=== PATIENT | female | born 1985 | race Asian ===

== ENCOUNTER 2023-04-29 20:50 | Emergency (ER) | payer MEDICAID, SELFPAY ==
--- NOTE | ~2023-04-29 | XR_ITS ---
EXAMINATION: XR HAND, LEFT CLINICAL INFORMATION: Evaluate fifth digit fracture. COMPARISON: None available. TECHNIQUE: PA, lateral, and oblique views of the left hand. FINDINGS: Obliquely oriented minimally displaced fracture of the proximal aspect of the middle phalanx of the fifth digit with intra-articular extension into the PIP joint. No additional fractures. Mild surrounding soft tissue swelling. No unexpected radiopaque foreign bodies. XR/XR hand LT 2V IMPRESSION: Fracture of the middle phalanx of the fifth digit with intra-articular extension as above.
[2023-04-29 21:00] VITALS: BP 149/102; BP 160/90; PULSE 110; PULSE 114; RESP 18; TEMP 37.1; O2SAT 100; O2SAT 97; BMI 40.3
--- NOTE | 2023-04-29 21:09 | ECG_ITS ---
Test Reason : OVERDOSE Blood Pressure : / mmHG Vent. Rate : 110 BPM Atrial Rate : 110 BPM P-R Int : 172 ms QRS Dur : 078 ms QT Int : 328 ms P-R-T Axes : 024 038 059 degrees QTc Int : 443 ms Sinus tachycardia Otherwise normal ECG No previous ECGs available Referred By: Brittanie Waldron Electronically Signed By:ELVIRA MC
--- NOTE | 2023-04-29 21:11 | ED.GENADULT ---
HPI - General Adult General Chief complaint: Overdose Stated complaint: accidently overdose Time Seen by Provider: 04/29/23 20:59 Source: patient Mode of arrival: EMS Limitations: no limitations History of Present Illness HPI narrative: Patient comes to the Emergency room by ambulance from a [facility] facility. Earlier today, patient accidentally took too much Ambien. Patient states that earlier in the morning, patient was trying to sleep, took 2 tablets of Ambien, then in the evening patient tried to sleep and took 2 more tablets of a min, total of 4 today. Facility staff noted that the patient was sleepy, wobbly on her feet, EMS was called. Patient states that she was just trying to sleep. Patient denies SI or HI. Related Data Allergies Allergy/AdvReac Type Severity Reaction Status Date / Time Penicillins Allergy Severe Anaphylaxis Verified 04/29/23 21:09 Review of Systems Review of Systems: Constitutional : No Weight loss, No Fever, No Chills, No Night Sweats, No Fatigue, No Malaise complaining of feeling somnolent ENT/Mouth : No Hearing loss, No Ear Pain, No Nasal Congestion, No Sinus Pain, No Hoarseness, No sore throat, No Rhinorrhea, No Swallowing Difficulty Eyes: No Eye Pain, No Swelling, No Redness, No Foreign Body, No Discharge, No Vision Changes Cardiovascular : No Chest Pain, No SOB, No Dyspnea on Exertion, No Orthopnea, No Edema, No Palpitations Respiratory : No Cough, No Sputum, No Wheezing, No Smoke Exposure, No Dyspnea Gastrointestinal : No Nausea, No Vomiting, No Diarrhea, No Constipation, No abdominal Pain, No Hematochezia, No Melena Genitourinary : no irregular bleeding, No Dysuria, No Urinary Frequency, No Hematuria, No Urinary Incontinence, No Urgency, No Flank Pain, No Urinary Flow Changes, No Hesitancy Musculoskeletal : No joint pain, No Myalgias, No Joint Swelling Skin : No Skin Lesions, No rash Neuro : No Weakness, No Numbness, No Paresthesias, No Loss of Consciousness, No Dizziness, No Headache Psych : No Anxiety/Panic, No Depression, No SI/HI/AH/VH, No Social Issues, Heme/Lymph: No Bruising, No Bleeding,No Lymphadenopathy Endocrine : No Polyuria, No Polydipsia, No Temperature Intolerance PMFSH Social History Social History Advance Directives: No Advance Directives Information Provided: No Physical Exam ED Vital Signs: Vital Signs - 24 hr 04/29/23 21:00 Temperature 98.7 F Pulse Rate 114 H Respiratory Rate 18 Blood Pressure 149/102 H Pulse Oximetry 97 Oxygen Delivery Method Room Air BMI result Body Mass Index 40.3 Const Other: Appearance: Alert. Oriented X3. No acute distress. Eyes: Pupils equal, round and reactive to light. ENT: Pharynx normal. Neck: Normal inspection. Neck supple. No lymph nodes noted. No crepitus CVS: Normal heart rate and rhythm. Pulses normal. Normal S1 and S2 Respiratory: No respiratory distress. Breath sounds normal. No Wheezing. No rales Abdomen: Soft and nontender. No rigidity. No distention. Skin: Skin warm and dry. Normal skin color. Normal skin turgor. Extremities: No lower extremity edema. No Lacerations. No Rash Neuro: Oriented X 3. No motor deficit. No sensory deficit. Moving all extremities. No slurred speech. CN 2 through 12 grossly intact Psych: calm, cooperative, normal affect Course Course Course Narrative: -all of patient's labs and imaging pending -EKG pending Medical Decision Making Medical Decision Making MDM Narrative: -at 22:14, I was informed that the patient eloped -also, the nurse informed me that the patient left with her IV in her arm. Security is looking for the patient, also police department has been called Lab Data 04/29/23 21:26 04/29/23 21:26 Labs: Lab Results 04/29/23 Range/Units 21:26 WBC 8.8 (4.8-10.8) X10*3/uL RBC 4.79 (4.20-5.50) X10*6/uL Hgb 13.7 (12.0-16.0) g/dl Hct 39.5 (37.0-47.0) % MCV 82.5 (80.0-98.0) fL MCH 28.6 (27.0-33.0) pg MCHC 34.7 (31.0-35.0) g/dl RDW 13.1 (11.0-16.0) % Plt Count 364 (160-400) X10*3/uL MPV 8.9 L (9.4-12.3) fL Immature Gran % (Auto) 0.6 H (0.0-0.4) % Neut % (Auto) 60.5 (45-73) % Lymph % (Auto) 28.3 (20-40) % Burnet % (Auto) 8.0 (2-11) % Eos % (Auto) 2.0 (0-4) % Baso % (Auto) 0.6 (0-2) % Lymph # (Auto) 2.5 (1.2-4.9) X10*3/uL Burnet # (Auto) 0.7 (0.1-1.2) X10*3/uL Eos # (Auto) 0.2 (0.0-0.4) X10*3/uL Baso # (Auto) 0.1 (0.0-0.2) X10*3/uL Abs Immat Gran (auto) 0.05 H (0.00-0.03) X10*3/uL Absolute Neuts (auto) 5.3 (2.0-8.3) x10*3/uL Absolute Nucleated RBC 0.000 (0.0-0.012) X10*3/uL Nucleated RBC % (auto) 0.0 (0.0-0.2) /100WBC PT 11.5 (11.1-13.3) SEC INR 0.9 (0.9-1.1) Sodium 138 (135-145) mmol/L Potassium 3.6 (3.3-5.1) mmol/L Chloride 105 (96-108) mmol/L Carbon Dioxide 25 (22-29) mmol/L Anion Gap 12 (12-20) BUN 17 H (9-16) mg/dL Creatinine 1.34 (0.5-1.4) mg/dL Estim Creat Clear Calc 66.6 Estimated GFR 45 Random Glucose 106 (60-115) mg/dL Calcium 9.3 (8.4-10.2) mg/dL Magnesium 2.2 (1.6-2.6) mg/dL Total Bilirubin 0.2 (0.0-1.0) mg/dL Direct Bilirubin < 0.2 (0.0-0.5) mg/dL AST 25 (5-31) U/L ALT 50 H (0-31) U/L Alkaline Phosphatase 110 (39-117) U/L Total Protein 8.4 H (6.5-8.0) g/dL Albumin 4.1 (3.5-5.0) g/dL Ethyl Alcohol < 10 mg/dL Discharge Plan Discharge Clinical Impression: Accidental medication overdose Patient Disposition: Left W/O Completing Treatment
--- NOTE | 2023-04-29 21:20 | PC.NURSE ---
Patient BIB [facility] for evaluation s/p accidentally taking too many Ambien tablets. Patient states that earlier in the morning she was trying to sleep, took 2 tablets of Ambien, later in evening patient took 2 more tabs of Ambien d/t difficult time staying asleep, total number of Ambien taken today is 4 tabs. [facility] staff noted that the patient was sleepy, wobbly on her feet, EMS was called. Patient reports she was just trying to sleep. Patient denies SI/HI. Patient is alt and oriented x4. Ambulated to a restroom with a steady gait. IV line established in L AC, labs drawn and sent to lab for processing, EKG completed by echocardiography radiology technologist. Patient requested and provided with kerry justino and chicken sandwich.
--- NOTE | 2023-04-29 21:21 | MHC.EDTECH ---
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 EKG done and handed to a provider
[2023-04-29 21:30] LABS: MANUAL DIFF FLAG NO
[2023-04-29 21:31] LABS: Basophils Absolute Auto 0.1 X10*3/uL (0.0-0.2); Basophils Percent Auto 0.6 % (0-2); Eosinophils Absolute Auto 0.2 X10*3/uL (0.0-0.4); Hematocrit 39.5 % (37.0-47.0); Hemoglobin 13.7 g/dl (12.0-16.0); Imm Gran Abs Auto 0.05 X10*3/uL (0.00-0.03); Imm Gran Pct Auto 0.6 % (0.0-0.4); Lymphocytes Absolute Auto 2.5 X10*3/uL (1.2-4.9); Lymphocytes Percent Auto 28.3 % (20-40); Mean Corpuscular HGB Conc 34.7 g/dl (31.0-35.0); Mean Corpuscular Hemoglobin 28.6 pg (27.0-33.0); Mean Corpuscular Volume 82.5 fL (80.0-98.0); Mean Platelet Volume 8.9 fL (9.4-12.3); Monocytes Absolute Auto 0.7 X10*3/uL (0.1-1.2); Neutrophils Absolute Auto 5.3 x10*3/uL (2.0-8.3); Neutrophils Percent Auto 60.5 % (45-73); Platelet Count 364 X10*3/uL (160-400); Red Blood Count 4.79 X10*6/uL (4.20-5.50); Red Cell Distribution Width 13.1 % (11.0-16.0); White Blood Count 8.8 X10*3/uL (4.8-10.8)
--- NOTE | 2023-04-29 21:36 | PC.NURSE ---
[facility] contacted, accidental overdose with ADELINA Mena, and results of EKG reported. Plan to draw labs and call back to [facility] with results of blood work. Monitor mental status and vital signs.
[2023-04-29 21:37] LABS: INTERNATIONAL NORM RATIO 0.9 (0.9-1.1); Prothrombin Time 11.5 SEC (11.1-13.3)
[2023-04-29 21:48] LABS: Alanine Aminotransferase 50 U/L (0-31); Albumin Level 4.1 g/dL (3.5-5.0); Alkaline Phosphatase 110 U/L (39-117); Anion Gap 12 (12-20); Aspartate Amino Transferase 25 U/L (5-31); Bilirubin Direct < 0.2 mg/dL (0.0-0.5); Bilirubin Total 0.2 mg/dL (0.0-1.0); Blood Urea Nitrogen 17 mg/dL (9-16); Calcium 9.3 mg/dL (8.4-10.2); Carbon Dioxide 25 mmol/L (22-29); Chloride 105 mmol/L (96-108); Creatinine Clr Calc Pharmacy 66.6; Estimated Glomerular Filt Rate 45; Ethanol < 10 mg/dL; Glucose Random 106 mg/dL (60-115); Magnesium 2.2 mg/dL (1.6-2.6); Potassium 3.6 mmol/L (3.3-5.1); Sodium 138 mmol/L (135-145); Total Protein 8.4 g/dL (6.5-8.0)
--- NOTE | 2023-04-29 22:05 | PC.NURSE ---
This RN was notified that patient escaped with IV line in place. Benitez Pacheco, [facility] notified via voice message at [phone]. Attempted to contact patient at phone number provided to registration-Cecelia patient's case checker at [place] answer the phone and was able to provide patient's mother information: Mady Spangler, [address], [place] [phone]. This RN contacted patient's mother who reported that she is at work and communicate with patient through 3-mail: [email or web address]. This RN sent e-mail to patient with request to come back to ED for IV line removal, no answer. [place] [employer] and [place] [employer] notified by Sary, charge nurse.
--- NOTE | 2023-04-29 22:10 | PC.NURSE ---
[facility] notified that patient left without completing treatment. [facility] case closed the case at this time, no interventions by ED needed at this time.
[2023-04-29 22:53] LABS: Acetaminophen LAB < 3 mcg/mL (<30); Salicylate < 5.0 mg/dL (15-30)
--- NOTE | 2023-04-30 10:23 | PC.NURSE ---
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 Lor provided me with the phone number for [facility] in [facility] [phone] and her current casemanager Rafaela Sepulveda [phone]. I called the [facility] and spoke with Tiffanie Pederson, Staff Computer Science Professor, who explained that Manda was brought back to the facility by PD around 1:00am alert and oriented x4 with no IV present and acting at baseline. She was then observed for a few hours with no complications. Today she presents as reserved, she did eat her breakfast and has been compliant with staff.
== END 2023-04-29 22:05 | disposition left against medical advice (07) ==
PROVIDERS: Emergency Provider Emergency Medicine
DX: T42.6X1A Poisoning by other antiepileptic and sedative-hypnotic drugs, accidental (unintentional), initial encounter (principal); Y92.9 Unspecified place or not applicable
CPT/HCPCS: 36415; 73120; 80048; 80076; 80143; 80179; 80307; 83735; 85025; 85610; 93005; 99283; 99285

== ENCOUNTER → 2023-04-29 21:09 | Outpatient (BNV) | payer MEDICAID, SELFPAY | PROVIDERS: Emergency Provider Emergency Medicine; Visit Provider Internal Medicine | DX: R00.0 Tachycardia, unspecified (principal) | CPT/HCPCS: 93010 ==